=== PATIENT | female | born 1950 | race Caucasian/White ===

== ENCOUNTER 2017-09-03 15:13 | Emergency (ER) | payer BC, OTHER ==
[~2017-09-03] VITALS: Ht 157.5 cm; Wt 101.6 kg
== END 2017-09-03 18:28 | disposition home or self-care (01) ==
LOC: ER 15:13
DX: M54.31 Sciatica, right side (principal); M25.551 Pain in right hip

== ENCOUNTER 2018-08-18 18:43 | Emergency (ER) | payer BC, OTHER ==
[~2018-08-18] VITALS: Ht 157.5 cm; Wt 104.3 kg
[2018-08-18] MEDS ORDERED: DILTIAZEM ER120 MG (19:00)
[2018-08-18] MEDS ORDERED: MICRO-K 1010 MEQ (19:00)
[2018-08-18] MEDS ORDERED: PRAVASTATIN SOD20 MG (19:01)
[2018-08-18] MEDS ORDERED: HYZAAR 100-251 EACH (19:01)
[2018-08-18] MEDS ORDERED: WELLBUTRIN XL300 MG (19:02)
== END 2018-08-18 21:11 | disposition home or self-care (01) ==
LOC: ER 18:43
DX: S09.8XXA Other specified injuries of head, initial encounter (principal); F10.988 Alcohol use, unspecified with other alcohol-induced disorder; R51 Headache; W18.39XA Other fall on same level, initial encounter; Y93.89 Activity, other specified; Y92.511 Restaurant or cafe as the place of occurrence of the external cause; Y99.8 Other external cause status